=== PATIENT | female | born 1990 | race Caucasian/White ===

== ENCOUNTER 2023-07-15 16:38 | Emergency (ER) | payer BC, SELFPAY ==
[2023-07-15 16:42] VITALS: BP 153/93; PULSE 88; RESP 20; TEMP 36.9; O2SAT 97
--- NOTE | 2023-07-15 18:30 | DI.CT_ITS ---
Exam(s) CT ABDOMEN PELVIS W EXAM: CT ABDOMEN PELVIS W CLINICAL HISTORY: right lower abdominal pain TECHNIQUE: Imaging Protocol: Axial computed tomography images with coronal and sagittal reformatted images were created and reviewed CONTRAST MATERIAL: Intravenous: Omnipaque 350 Contrast volume:70 mL Oral: No COMPARISON: No exams were available for comparison FINDINGS: The patient has bilateral breast implants which are incompletely imaged. ABDOMEN: Lung Bases: Normal where visualized. Liver: Normal density. No measurable mass. Portal, Superior Mesenteric, and Splenic Veins: Unremarkable. Gallbladder and Biliary Tract: No radiodense calculus or dilation. Pancreas: Normal density, no abnormal calcifications or inflammatory process. Spleen: Normal. Adrenals: No masses seen. Kidneys: Normal size, contour and axis. No radiodense stones or obstructive uropathy. No masses seen. Abdominal Aorta: Abdominal portion non-dilated. Bowel: There is a decompressed segment of sigmoid colon in the right pelvis. There are linear areas of air which may lie within the wall of the bowel suggesting pneumatosis. No portal venous gas is se en at this time. There is no free air in the abdomen. Appendix is unremarkable. There is a large am ount of stool in the colon suggesting constipation. Peritoneal Cavity: No ascites, collection or mesenteric inflammatory response. No free air. Lymph Nodes: Within normal limits. Bones: Within normal limits for the patient's age. Soft Tissues: Unremarkable. PELVIS: Bladder: Symmetric distention, no gross wall thickening. Reproductive Organs: The uterus is enlarged consistent with the uterus. Lymph Nodes: Within normal limits. Bones: Within normal limits for the patient's age. IMPRESSION: 1. Decompressed segment of sigmoid colon in the right pelvis with linear collections of air which may lie within the wall. This may represent pneumatosis. Ischemic bowel should be considered. Please correlate clinically. 2. The uterus is enlarged consistent with a uterus. 3. Constipation. RADIATION DOSE DELIVERED: 679.57mGy.cm Total DLP DATA REPOSITORY: All CT scans at this facility are submitted to the National Radiology Data Registry (NRDR) Dose Index Registry (DIR) with the [employer] (ACR). RADIATION OPTIMIZATION: All CT scans at this facility use at least one of these dose optimization te chniques: automated exposure control; mA and/or kV adjustment per patient size (includes targeted exa ms where dose is matched to clinical indication); or iterative reconstruction.
--- NOTE | 2023-07-15 18:39 | W.ED.GENAD ---
HPI General Mode of arrival: ambulatory. Date/Time Provider Initiated Documentation: 07/15/23 16:57. Limitations to Documentation: no limitations. Information obtained by: patient. History of Present Illness 32 year old F presents to the emergency department with the chief complaint of right sided abdominal pain, described as moderate, Quality is described as sharp, Patient started experiencing this hour(s) (12) and it has been constant. No relieving factors improve symptom(s), No exacerbating factors reported . Patient notes no other symptoms.. Patient did receive the following treatments prior to arrival, none Related Data Home Medications Medication Instructions Recorded Confirmed vits,calcium 21-iron fum 1 tab PO DAILY 07/01/16 07/15/23 14 mg iron-folic acid 400 mcg tablet ( Complete) nitrofurantoin 100 mg PO Q12H 5 days #10 caps 07/15/23 monohydrate/macrocrystals 100 mg capsule (Macrobid) Previous Rx's Medication Instructions Recorded nitrofurantoin 100 mg PO Q12H 5 days #10 caps 07/15/23 monohydrate/macrocrystals 100 mg capsule (Macrobid) Allergies Allergy/AdvReac Type Severity Reaction Status Date / Time No Known Allergies Allergy Unverified 07/15/23 16:45 General Stated Complaint: Abd Prob CARMINE: 3 Review of Systems All systems reviewed & are unremarkable except as noted in HPI and below Constitutional Constitutional: Denies chills, Denies fever(s) and Denies weakness Cardiovascular Cardiovascular: Denies chest pain and Denies dyspnea Respiratory Respiratory: Denies cough and Denies dyspnea Gastrointestinal Gastrointestinal: Denies nausea and Denies vomiting Integumentary/Breasts Skin/Breast: Denies rash Neurologic Neurologic: Denies weakness Exam Const General: no acute distress Orientation: alert [facility] Head: normal to inspection Ears: external ears normal General nose exam: external nose normal Mouth: moist mucous membranes Eyes General: appearance normal, both eyes and all related structures Neck Neck: normal visual inspection Resp Effort & Inspection: normal respiratory effort and able to speak in complete sentences Cardio Rate: regular rate GI Palpation: soft and tender Skin General skin exam: no rashes or lesions noted Neuro General: patient alert and patient oriented x3 Extrem General: normal to inspection Psych Mental Status: mental status grossly normal Course Vital Signs Vital signs: Vital Signs Temperature 36.9 C 07/15/23 16:42 Pulse 88 07/15/23 16:42 Respiratory Rate 20 07/15/23 16:42 Blood Pressure 153/93 H 07/15/23 16:42 Pulse Oximetry 97 07/15/23 16:42 Temperature 36.9 C 07/15/23 16:42 Temperature Source Skin 07/15/23 16:42 Pulse 88 07/15/23 16:42 Respiratory Rate 20 07/15/23 16:42 Blood Pressure 153/93 H 07/15/23 16:42 Blood Pressure Position Sitting 07/15/23 16:42 Pulse Oximetry 97 07/15/23 16:42 Oxygen Delivery Method Room Air 07/15/23 16:42 Oxygen Flow Rate 0 07/15/23 16:42 Pain Level 6 07/15/23 16:42 Medical Decision Making 32 yo female who denies chronic medical problems comes in with right lower abdominal pain since this morning. She had a home vaginal delivery with no complications 2 weeks ago and started to have the pain this morning. Saw her e business consultant who did not feel it was related to her delivery and sent her to the ED. She denies fevers, chills,urinary symptoms, change in bowels, n/v. She is caox4 on arrival. She has a soft abdomen with tenderness in the right lower and left lower quadrants with no guarding. Unclear etiology for her pain, will proceed with cbc, cmp, lipase and ct abd/pelvis labs unremarkable other then ua which is positive for nitrites, no cva tenderness or fevers so dout pyelo, will start macrobid. She has no pain now and no tenderness. Discussed results of the CT with ad radiologist Dr. Campos and she said the impression results could be from bowel contractions. Given she has no tenderness now doubt ischemic bowel. She is stable for d/c, advised to f/u with pcp if pain continues and return precautions given Differential Diagnosis Differential Diagnosis: appendicitis, diverticulitis Imaging Data Radiologic Study: Attestation: I personally reviewed and interpreted this imaging study as follows: Imaging: CT Scan Radiologist's impression: IMPRESSION: There is a long segment of narrowed bowel in the rectosigmoid extending from the right side of the pelvis to the rectum. For example series 5, image 564 -610. There are linear collections of air along this loop of bowel that could represent pneumatosis in the appropriate clinical setting. Differential includes ischemic bowel. The colon proximal to this shows mildly distended air-filled loops of bowel suggesting that this could represent partial obstruction. Lab Data Lab results reviewed: Yes I reviewed the patient's lab results. Quality:[facility] Health Related Social Needs: No Data to Display PFSH All Active Problems (Updated 07/15/23 @ 20:49 by Jesse Alonzo MD) Abdominal pain (Acute) Urinary tract infection (Acute) Social History Smoking/Tobacco Use Status: Never Smoking risk assessment performed?: Yes Substance use type: does not use Housing: house Do you feel safe at home: Yes Do you feel safe in your relationship?: Yes Discharge Plan Disposition Patient Disposition: Home Condition: Stable Discharge Details Clinical Impression: Urinary tract infection, Abdominal pain Primary Care Provider: Chance Avila ED Provider: Jesse Alonzo Home Meds and New Rx's Prescriptions: New nitrofurantoin monohyd/m-cryst [Macrobid] 100 mg capsule 100 mg PO Q12H 5 Days Qty: 10 0RF Rx Instructions: must administer with a meal/food Continued Complete 1 EACH tablet 1 tab PO DAILY Discharge Instructions Instructions: Urinary Tract Infection in Women (ED) Additional Instructions: if pain continues in a week follow up with your primary care provider if pain significantly worsens, you have persistent vomiting or fevers return to the emergency department
[2023-07-15 18:49] VITALS: BP 125/79; PULSE 40; RESP 12; O2SAT 98
[2023-07-15 18:49] LABS: Abs Immature Grans 0.02 10^3/uL (0.0-0.06); Absolute Basophil Count 0.07 10^3/uL (0.0-0.2); Absolute Eosinophil Count 0.54 10^3/uL (0.0-0.7); Absolute Lymphocyte Count 1.71 10^3/uL (1.2-3.4); Absolute Monocyte Count 0.89 10^3/uL (0.1-0.8); Basophils % 0.9; HCT 44.3 % (36.0-46.0); HGB 14.5 g/dL (11.2-15.7); Immature Grans % 0.3; Lymphocytes % 22.1; MCH 29.4 pg (27.0-33.0); MCHC 32.7 % (32.0-36.0); MCV 90 fL (80-95); MPV 11.1 fL (8.0-11.0); Monocytes % 11.5; Neutrophils % 58.2; Platelet Count 316 10^3/uL (130-400); RBC 4.94 10^6/uL (3.93-5.22); WBC 7.73 10^3/uL (4.4-10.8)
[2023-07-15] MEDS: Normal Saline 1,000 ML 1000 ML IV (19:00)
[2023-07-15 19:03] LABS: ALT 29 U/L (14-59); AST 24 U/L (15-37); Albumin 3.5 g/dL (3.4-5.0); Alkaline Phosphatase 101 U/L (46-116); Anion Gap 9.2 mmol/L (3-11); BUN 10 mg/dL (7-18); Bilirubin, Total 0.4 mg/dL (0.2-1.0); CO2 27.8 mmol/L (21.0-32.0); CREATININE 0.8 mg/dL (0.55-1.02); Calcium 9.2 mg/dL (8.5-10.1); Chloride 103 mmol/L (98-107); Estimated GFR 100.33 (mL/min/1.73m2); Glucose 91 mg/dL (74-106); Lipase 19 U/L (16-77); Magnesium 2.1 mg/dL (1.8-2.4); Potassium 4.2 mmol/L (3.5-5.1); Sodium 140 mmol/L (136-145); Total Protein 7.5 g/dL (6.4-8.2)
[2023-07-15] MEDS: Omnipaque 350 MG/ML 100 ML BTL IJ (19:46)
[2023-07-15] MEDS: Normal Saline - Diluent 50 ML VIAL IJ (20:00)
[2023-07-15] MEDS: Normal Saline Flush 10 ML SYR IVP (20:01)
--- NOTE | 2023-07-15 20:26 | DI.VRAD_ITS ---
Addendum created by Deepali Lang MD on 07/15/2023 8:28:32 PM EST: THIS REPORT CONTAINS FINDINGS THAT MAY BE CRITICAL TO PATIENT CARE. The findings were verbally communicated via telephone conference with Jesse Alonzo at 8:28 PM EST on 07/15/2023. The findings were acknowledged and understood. He states that the patient was examined by her umbrella tipper machine before she came in Initial report created on 07/15/2023 8:25:50 PM EST: PROCEDURE INFORMATION: Exam: CT Abdomen And Pelvis With Contrast Exam date and time: 07/15/2023 7:53 PM Age: 32 years old Clinical indication: Abdominal pain; Localized; Left lower quadrant (llq); Patient HX: Rlq pain; Additional info: 2 weeks post partem TECHNIQUE: Imaging protocol: Computed tomography of the abdomen and pelvis with contrast. Radiation optimization: All CT scans at this facility use at least one of these dose optimization techniques: automated exposure control; mA and/or kV adjustment per patient size (includes targeted exams where dose is matched to clinical indication); or iterative reconstruction. Contrast material: OMNIPAQUE 350; Contrast volume: 70 ml; Contrast route: INTRAVENOUS (IV); COMPARISON: No relevant prior studies available. FINDINGS: Liver: Normal. No mass. Gallbladder and bile ducts: Normal. No calcified stones. No ductal dilation. Pancreas: Normal. No ductal dilation. Spleen: Normal. No splenomegaly. Adrenal glands: Normal. No mass. Kidneys and ureters: Subcentimeter low attenuation area in the right kidney is too small for characterization. There is no evidence of renal or ureteral calcifications. Stomach and bowel: Findings consistent with constipation. There is a long segment of narrowed bowel in the rectosigmoid extending from the right side of the pelvis to the rectum. For example series 5, image [id number] -610. There are linear collections of air along this loop of bowel that could represent pneumatosis in the appropriate clinical setting. Differential includes ischemic bowel. The colon proximal to this shows mildly distended air-filled loops of bowel suggesting that this could represent partial obstruction. Appendix: Normal appendix Intraperitoneal space: Unremarkable. No free air. No significant fluid collection. Vasculature: The portal vein and splenic vein are patent. The celiac artery and SMA artery are patent Lymph nodes: Unremarkable. No enlarged lymph nodes. Urinary bladder: Unremarkable as visualized. Reproductive: The uterus is enlarged consistent with status. Bones/joints: Unremarkable. No acute fracture. Soft tissues: Bilateral breast augmentation IMPRESSION: There is a long segment of narrowed bowel in the rectosigmoid extending from the right side of the pelvis to the rectum. For example series 5, image [id number] -[id number]. There are linear collections of air along this loop of bowel that could represent pneumatosis in the appropriate clinical setting. Differential includes ischemic bowel. The colon proximal to this shows mildly distended air-filled loops of bowel suggesting that this could represent partial obstruction. Dictated and Authenticated by: Deepali Lang MD. Ordering:KATEY Molina MD
[2023-07-15 20:42] LABS: Bilirubin Negative (Negative); Blood Moderate (Negative); Clarity Clear (Clear); Glucose Negative (Negative); Ketones Negative (Negative); Leukocyte Esterase Moderate (Negative); Nitrite Positive (Negative); Specific Gravity 1.015 (1.005-1.025); Urobilinogen 0.2 mg/dL (Up to 0.2); pH 6.5 (5-8)
[2023-07-15 20:49] LABS: Bacteria Many HPF (Negative); C & S Indicated? Yes; Crystals Negative HPF (Negative); Epithelial Cells Few HPF (Negative); Mucus Negative (Negative); Other Cells Negative (Negative)
[2023-07-15 20:53] VITALS: PULSE 87; RESP 18; O2SAT 98
[2023-07-15 20:59] VITALS: BP 124/77; PULSE 78; RESP 14; O2SAT 96
[2023-07-15] MEDS: MacroBID 100 MG CAP PO (21:00)
== END 2023-07-15 21:30 | disposition home or self-care (01) ==
PROVIDERS: Emergency Provider Emergency Medicine; PCP Nurse Practitioner Family
DX: R10.31 Right lower quadrant pain (principal); N39.0 Urinary tract infection, site not specified
CPT/HCPCS: 80053; 83690; 87077; 96360; 96361; 99285; 74177; 81003; 81015; 83735; 85025; 87086; 87186; 99283; J3490